=== PATIENT | male | born 1960 | race Caucasian/White ===

== ENCOUNTER 2017-08-18 09:23 | Emergency (ER) | payer MEDICAID ==
[~2017-08-18] VITALS: Ht 182.9 cm; Wt 102.5 kg
[2017-08-18 10:33] VITALS: BP 142/72
[2017-08-18] MEDS ORDERED: TETANUS-DIPTH-ACEL PERTUSSIS 0.5ML SYRG IM ONE (10:45)
== END 2017-08-18 11:00 | disposition home or self-care (01) ==
LOC: ER 09:23
DX: S61.213A Laceration without foreign body of left middle finger without damage to nail, initial encounter (principal); I10 Essential (primary) hypertension; W20.8XXA Other cause of strike by thrown, projected or falling object, initial encounter; Y93.89 Activity, other specified; Y92.89 Other specified places as the place of occurrence of the external cause; Y99.8 Other external cause status
CPT/HCPCS: 12002; 90471; 90715

== ENCOUNTER 2018-09-18 08:47 | Emergency (ER) | payer MEDICAID ==
[~2018-09-18] VITALS: Ht 182.9 cm; Wt 108.9 kg
[2018-09-18 08:58] VITALS: BP 170/98
== END 2018-09-18 09:43 | disposition home or self-care (01) ==
LOC: ER 08:47
DX: S20.412A Abrasion of left back wall of thorax, initial encounter (principal); S00.01XA Abrasion of scalp, initial encounter; I10 Essential (primary) hypertension; W01.0XXA Fall on same level from slipping, tripping and stumbling without subsequent striking against object, initial encounter; Y93.89 Activity, other specified; Y99.8 Other external cause status; Y92.89 Other specified places as the place of occurrence of the external cause

== ENCOUNTER → 2019-02-03 | Outpatient (CLI) | payer MEDICAID ==
[~2019-02-03] VITALS: Ht 182.9 cm; Wt 106.6 kg
[2019-02-03 12:28] LABS: Urine Blood Negative /uL (Negative); Urine Specific Gravity 1.013 (1.001-1.035)
[2019-02-03 12:31] LABS: Basophils # (auto) 0.1 uL; Basophils % (auto) 1.5 % (0.0-2.0); Eosinophils # (auto) 0.3 uL; Eosinophils % (auto) 3.7 % (0.0-7.0); Hematocrit 46.2 % (41.0-53.0); Hemoglobin 15.8 g/dL (13.5-17.5); Lymphocytes # (auto) 2.4 uL; Lymphocytes % (auto) 36.1 % (10.0-50.0); Mean Corpuscular Hemoglobin 32.6 pg (28.0-32.0); Mean Corpuscular Hgb Conc. 34.2 g/dL (32.0-36.0); Mean Corpuscular Volume 95.3 fL (80.0-100.0); Monocytes # (auto) 0.5 uL; Neutrophils # (auto) 3.4 uL; Neutrophils % (auto) 50.7 % (37.0-80.0); Nucleated Red Blood Cells % 0.1 %; Platelet Count (auto) 124 10^3/uL (140-450); Red Blood Cells 4.85 10^6/uL (4.5-5.90); White Blood Cell 6.7 10^3/uL (4.4-10.8)
[2019-02-03 12:41] LABS: Albumin 3.7 g/dL (3.4-5.0); Calcium 9.1 mg/dL (8.5-10.1); Potassium 3.9 mmol/L (3.5-5.1)
[2019-02-03 12:48] LABS: Bilirubin, Total 1.1 mg/dL (0.2-1.0); Prostate Specific Antigen 0.25 ng/mL (0.0-4.0)
[2019-02-03 20:13] LABS: Free T4 (Free Thyroxine) 0.75 ng/dL (0.89-1.76)
== END | disposition home or self-care (01) ==
LOC: Rad HDHVI 08:06
PROVIDERS: ATTEND Internal Medicine Cardiovascular Disease
DX: I34.0 Nonrheumatic mitral (valve) insufficiency (principal); E03.9 Hypothyroidism, unspecified; E29.1 Testicular hypofunction; D51.9 Vitamin B12 deficiency anemia, unspecified; C61 Malignant neoplasm of prostate; N39.0 Urinary tract infection, site not specified; R07.89 Other chest pain; K90.9 Intestinal malabsorption, unspecified; I10 Essential (primary) hypertension; Z79.899 Other long term (current) drug therapy
CPT/HCPCS: 36415; 78452; 80053; 80061; 81003; 82306; 82607; 83036; 84153; 84403; 84439; 84443; 85025; 93017; 93306; 96374; A9500

== ENCOUNTER 2021-10-29 21:26 | Inpatient (IN) | payer MEDICAID ==
[~2021-10-29] VITALS: Ht 182.9 cm; Wt 99.4 kg
[2021-10-29 22:58] LABS: Basophils # (auto) 0.1 10 ^3/uL (0-0.2); Basophils % (auto) 0.9 % (0.0-2.0); Eosinophils # (auto) 0.1 10 ^3/uL (0-0.8); Eosinophils % (auto) 1.1 % (0.0-7.0); Hematocrit 47.6 % (41.0-53.0); Hemoglobin 16.4 g/dL (13.5-17.5); Lymphocytes # (auto) 3.6 10 ^3/uL (0.4-5.4); Lymphocytes % (auto) 29.3 % (10.0-50.0); Mean Corpuscular Hemoglobin 30.9 pg (28.0-32.0); Mean Corpuscular Hgb Conc. 34.4 g/dL (32.0-36.0); Mean Corpuscular Volume 89.9 fL (80.0-100.0); Monocytes # (auto) 1.3 10 ^3/uL (0-1.3); Monocytes % (auto) 10.7 % (0.0-12.0); Nucleated Red Blood Cells % 0.1 %; Red Cell Distribution Width 12.8 % (11.8-14.3); White Blood Cell 12.1 10^3/uL (4.4-10.8)
[2021-10-29 23:18] LABS: Calcium 9.2 mg/dL (8.5-10.1); Potassium 4.1 mmol/L (3.5-5.1)
[2021-10-29 23:26] LABS: Bilirubin, Total 2.6 mg/dL (0.2-1.0); Total Protein 8.4 g/dL (6.4-8.2)
[2021-10-30] MEDS ORDERED: OXYCODONE W/ ACETAMINOPHEN 5/325MG TABLET PO ONE (00:15)
[2021-10-30 02:05] LABS: Urine Bacteria NONE SEEN /hpf (None Seen); Urine Blood Negative /uL (Negative); Urine Specific Gravity 1.014 (1.001-1.035); Urine WBC <1 /hpf (0 - 3)
[2021-10-30] MEDS ORDERED: ONDANSETRON HCL 4 MG/2 ML VIAL IV ONE (05:00)
[2021-10-30] MEDS ORDERED: HYDROmorphone HCL 2 MG/ML VL/or syr IV ONE (05:00)
[2021-10-30] MEDS ORDERED: HYDROcodone-ACET 5/325MG TAB PO PRN (10:15)
[2021-10-30] MEDS: ASPirin-EC 81 mg tab PO SCH (10:15)
[2021-10-30] MEDS ORDERED: ONDANSETRON HCL 4 MG/2 ML VIAL IV PRN (10:15)
[2021-10-30] MEDS: HEPARIN SODIUM (PORCINE) 5000 UNITS/ML 1ML VIAL SC SCH ×2 (11:28→18:15)
[2021-10-30 12:16] LABS: Cholesterol 192 mg/dL (< 200); HDL Cholesterol 26 mg/dL (40-59); LDL Cholesterol 167 mg/dL (< 100); Triglycerides 131 mg/dL (< 150)
[2021-10-30] MEDS: SODIUM CHLOR 0.9% PF (SALINE LOCK) 10ML VIAL/SYR IV SCH ×2 (14:04→21:41)
[2021-10-30] MEDS ORDERED: LISI2.5T47 PO (18:24)
[2021-10-30] MEDS ORDERED: PANTOPRAZOLE 40 MG TAB PO ONE (18:30)
[2021-10-30] MEDS: hydrALAZINE HCL 20 MG/ML VL IV PRN (18:41)
[2021-10-30 20:00] VITALS: BP 127/79
[2021-10-30] MEDS: ATORVASTATIN 20 MG TAB PO SCH (21:41)
[2021-10-30 22:00] VITALS: BP 127/79
[2021-10-30] MEDS ORDERED: ALPR0.25 PO (23:27)
[2021-10-30] MEDS ORDERED: CAR25T PO (23:27)
[2021-10-30] MEDS ORDERED: HYDR-4902 PO (23:28)
[2021-10-31] MEDS: HEPARIN SODIUM (PORCINE) 5000 UNITS/ML 1ML VIAL SC SCH ×3 (01:57→17:44)
[2021-10-31 05:00] VITALS: BP 121/81
[2021-10-31] MEDS: ACETAMINOPHEN 325 MG TAB PO PRN ×3 (05:08→21:51)
[2021-10-31] MEDS: SODIUM CHLOR 0.9% PF (SALINE LOCK) 10ML VIAL/SYR IV SCH ×3 (05:08→21:47)
[2021-10-31 09:20] VITALS: BP 135/83
[2021-10-31] MEDS: PANTOPRAZOLE 40 MG TAB PO SCH (09:58)
[2021-10-31] MEDS: predniSONE 20 MG TAB PO SCH (09:58)
[2021-10-31] MEDS: ASPirin-EC 81 mg tab PO SCH (09:58)
[2021-10-31] MEDS ORDERED: METH4TAB7 PO (10:46)
[2021-10-31] MEDS ORDERED: POM PO (10:46)
[2021-10-31 13:00] VITALS: BP 139/84
[2021-10-31 16:25] VITALS: BP 132/86
[2021-10-31] MEDS ORDERED: ARTIFICIAL TEARS 15ml EACHEYE PRN (21:45)
[2021-10-31 21:49] VITALS: BP 151/92
[2021-10-31] MEDS: ATORVASTATIN 20 MG TAB PO SCH (21:50)
[2021-10-31] MEDS: CARBIDOPA W LEVODOPA 25/100mg TABLET PO SCH (21:50)
[2021-10-31] MEDS: hydrALAZINE HCL 20 MG/ML VL IV PRN (22:02)
[2021-11-01] MEDS: HEPARIN SODIUM (PORCINE) 5000 UNITS/ML 1ML VIAL SC SCH ×3 (04:03→17:59)
[2021-11-01] MEDS: HYDROmorphone HCL 2 MG/ML VL/or syr IV PRN (04:12)
[2021-11-01 05:00] VITALS: BP 149/94
[2021-11-01] MEDS: SODIUM CHLOR 0.9% PF (SALINE LOCK) 10ML VIAL/SYR IV SCH ×3 (05:17→22:06)
[2021-11-01 06:52] LABS: Basophils # (auto) 0.1 10 ^3/uL (0-0.2); Basophils % (auto) 0.5 % (0.0-2.0); Eosinophils # (auto) 0.1 10 ^3/uL (0-0.8); Hematocrit 45.3 % (41.0-53.0); Hemoglobin 15.5 g/dL (13.5-17.5); Lymphocytes # (auto) 5.6 10 ^3/uL (0.4-5.4); Lymphocytes % (auto) 38.8 % (10.0-50.0); Mean Corpuscular Hemoglobin 30.7 pg (28.0-32.0); Mean Corpuscular Hgb Conc. 34.2 g/dL (32.0-36.0); Mean Corpuscular Volume 89.5 fL (80.0-100.0); Monocytes # (auto) 1.4 10 ^3/uL (0-1.3); Monocytes % (auto) 9.9 % (0.0-12.0); Neutrophils # (auto) 7.2 10 ^3/uL (1.6-8.6); Neutrophils % (auto) 49.8 % (37.0-80.0); Nucleated Red Blood Cells % 0.7 %; Red Blood Cells 5.06 10^6/uL (4.5-5.90); Red Cell Distribution Width 13.2 % (11.8-14.3); White Blood Cell 14.5 10^3/uL (4.4-10.8)
[2021-11-01 07:08] LABS: Calcium 8.7 mg/dL (8.5-10.1); Potassium 3.8 mmol/L (3.5-5.1)
[2021-11-01 07:11] LABS: BUN/Creatinine Ratio 24.7
[2021-11-01 08:00] VITALS: BP 150/94
[2021-11-01 09:00] VITALS: BP 150/94
[2021-11-01] MEDS: predniSONE 20 MG TAB PO SCH (10:02)
[2021-11-01] MEDS: ASPirin-EC 81 mg tab PO SCH (10:03)
[2021-11-01] MEDS: PANTOPRAZOLE 40 MG TAB PO SCH (10:03)
[2021-11-01] MEDS ORDERED: IBUPROFEN 400 MG TAB PO PRN (11:15)
[2021-11-01] MEDS ORDERED: IBUPROFEN 400 MG TAB PO ONE (11:15)
[2021-11-01 13:00] VITALS: BP 157/96
[2021-11-01 17:00] VITALS: BP 163/88
[2021-11-01 22:00] VITALS: BP 114/78
[2021-11-01] MEDS: DOCUSATE SOD 100 MG CAP PO SCH (22:05)
[2021-11-01] MEDS: CARBIDOPA W LEVODOPA 25/100mg TABLET PO SCH (22:05)
[2021-11-01] MEDS: ATORVASTATIN 20 MG TAB PO SCH (22:06)
[2021-11-02] MEDS: HYDROmorphone HCL 2 MG/ML VL/or syr IV PRN ×2 (00:30→09:11)
[2021-11-02] MEDS: HEPARIN SODIUM (PORCINE) 5000 UNITS/ML 1ML VIAL SC SCH ×3 (02:15→10:19)
[2021-11-02 05:07] VITALS: BP 119/71
[2021-11-02] MEDS: SODIUM CHLOR 0.9% PF (SALINE LOCK) 10ML VIAL/SYR IV SCH ×2 (06:07→09:07)
[2021-11-02] MEDS: predniSONE 20 MG TAB PO SCH (08:58)
[2021-11-02] MEDS: ASPirin-EC 81 mg tab PO SCH (08:59)
[2021-11-02] MEDS: hydrALAZINE HCL 20 MG/ML VL IV PRN (08:59)
[2021-11-02] MEDS: PANTOPRAZOLE 40 MG TAB PO SCH (08:59)
[2021-11-02] MEDS: DOCUSATE SOD 100 MG CAP PO SCH (08:59)
[2021-11-02 09:00] VITALS: BP 153/94
[2021-11-02] MEDS ORDERED: PANT40T PO (10:21)
[2021-11-02] MEDS ORDERED: PERCOT PO (10:21)
[2021-11-02] MEDS ORDERED: SENN-58 PO (10:22)
[2021-11-02] MEDS ORDERED: PRED20TA2 PO (10:22)
[2021-11-02 11:07] LABS: Basophils # (auto) 0.1 10 ^3/uL (0-0.2); Eosinophils # (auto) 0.1 10 ^3/uL (0-0.8); Hematocrit 44.3 % (41.0-53.0); Hemoglobin 14.8 g/dL (13.5-17.5); Lymphocytes # (auto) 4.5 10 ^3/uL (0.4-5.4); Lymphocytes % (auto) 36.7 % (10.0-50.0); Mean Corpuscular Hemoglobin 30.8 pg (28.0-32.0); Mean Corpuscular Hgb Conc. 33.4 g/dL (32.0-36.0); Monocytes % (auto) 7.8 % (0.0-12.0); Neutrophils # (auto) 6.6 10 ^3/uL (1.6-8.6); Neutrophils % (auto) 53.5 % (37.0-80.0); Nucleated Red Blood Cells % 0.1 %; Red Blood Cells 4.82 10^6/uL (4.5-5.90); White Blood Cell 12.3 10^3/uL (4.4-10.8)
[2021-11-02 11:27] LABS: BUN/Creatinine Ratio 19.5; Calcium 8.6 mg/dL (8.5-10.1); Potassium 3.9 mmol/L (3.5-5.1)
[2021-11-02 11:30] VITALS: BP 153/94
[2021-11-02 13:00] VITALS: BP 161/92
[2021-11-02 13:48] VITALS: BP 163/87
== END 2021-11-02 16:06 | disposition home or self-care (01) | DRG 48 ==
LOC: ER 21:26 → TELE 10-30 10:10 → TELE-EAST 10-30 18:10
PROVIDERS: ADMIT Internal Medicine; ATTEND Internal Medicine Pulmonary Disease
DX: G51.0 Bell's palsy (principal); E66.9 Obesity, unspecified; F41.9 Anxiety disorder, unspecified; K21.9 Gastro-esophageal reflux disease without esophagitis; Z20.822 Contact with and (suspected) exposure to COVID-19; Z68.30 Body mass index [BMI] 30.0-30.9, adult
CPT/HCPCS: 36415; 70450; 70551; 71045; 80048; 80053; 80061; 81001; 84443; 84484; 85025; 87040; 92610; 93306; 93886; 96374; 96375; 97116; 97163; 97530; G0378; J2405

== ENCOUNTER → 2022-04-08 | Outpatient (CLI) | payer MEDICAID ==
[~2022-04-08] MED LIST: ALPR0.25 PO; CAR25T PO; HYDR-4902 PO; LISI2.5T47 PO; METH4TAB7 PO; PANT40T PO; PERCOT PO; PRED20TA2 PO; SENN-58 PO
== END | disposition home or self-care (01) ==
LOC: Rad HDHVI 08:07
PROVIDERS: ATTEND Internal Medicine Cardiovascular Disease
DX: I08.3 Combined rheumatic disorders of mitral, aortic and tricuspid valves (principal); R00.2 Palpitations; E78.5 Hyperlipidemia, unspecified
CPT/HCPCS: 93306

== ENCOUNTER → 2022-05-08 | Outpatient (CLI) | payer MEDICAID ==
[~2022-05-08] VITALS: Ht 182.9 cm; Wt 99.8 kg
[~2022-05-08] MED LIST changes: +ADENOSINE 84 MG in GIVE UN-DILUTED 0 ML IV ONE; +ADENOSINE 90 MG/30 ML INJ IV ONE
== END | disposition home or self-care (01) ==
LOC: Rad HDHVI 08:09
PROVIDERS: ATTEND Internal Medicine Cardiovascular Disease
DX: I35.0 Nonrheumatic aortic (valve) stenosis (principal); R07.89 Other chest pain; I10 Essential (primary) hypertension; G51.0 Bell's palsy; B02.21 Postherpetic geniculate ganglionitis; Z82.49 Family history of ischemic heart disease and other diseases of the circulatory system
CPT/HCPCS: 78452; 93005; 96374; 96375; A9500; J0153

== ENCOUNTER → 2022-07-07 | Outpatient (CLI) | payer MEDICAID ==
[~2022-07-07] MED LIST changes: -ADENOSINE 84 MG in GIVE UN-DILUTED 0 ML IV ONE; -ADENOSINE 90 MG/30 ML INJ IV ONE; +LISI-285 PO
[2022-07-07 09:00] VITALS: BP 161/90
[2022-07-07 09:27] VITALS: BP 149/88
== END | disposition home or self-care (01) ==
LOC: CHF HDHVI 09:06
PROVIDERS: ATTEND Internal Medicine Cardiovascular Disease
DX: Z01.818 Encounter for other preprocedural examination (principal); R94.31 Abnormal electrocardiogram [ECG] [EKG]; I44.4 Left anterior fascicular block; I11.0 Hypertensive heart disease with heart failure; I50.23 Acute on chronic systolic (congestive) heart failure; I34.0 Nonrheumatic mitral (valve) insufficiency; I34.1 Nonrheumatic mitral (valve) prolapse; R42 Dizziness and giddiness
CPT/HCPCS: 93005; G0463

== ENCOUNTER 2022-07-10 06:54 | Day surgery (SDC) | payer MEDICAID ==
[2022-07-07 10:10] LABS: Basophils # (auto) 0.1 10 ^3/uL (0-0.2); Basophils % (auto) 1.5 % (0.0-2.0); Eosinophils # (auto) 0.3 10 ^3/uL (0-0.8); Eosinophils % (auto) 3.6 % (0.0-7.0); Hematocrit 46.2 % (41.0-53.0); Hemoglobin 16.1 g/dL (13.5-17.5); Lymphocytes # (auto) 3.1 10 ^3/uL (0.4-5.4); Lymphocytes % (auto) 41.6 % (10.0-50.0); Mean Corpuscular Hemoglobin 31.8 pg (28.0-32.0); Mean Corpuscular Hgb Conc. 34.8 g/dL (32.0-36.0); Mean Corpuscular Volume 91.4 fL (80.0-100.0); Monocytes # (auto) 0.7 10 ^3/uL (0-1.3); Monocytes % (auto) 9.6 % (0.0-12.0); Neutrophils # (auto) 3.2 10 ^3/uL (1.6-8.6); Neutrophils % (auto) 43.7 % (37.0-80.0); Nucleated Red Blood Cells % 0.4 %; Red Blood Cells 5.06 10^6/uL (4.5-5.90); Red Cell Distribution Width 13.1 % (11.8-14.3); White Blood Cell 7.4 10^3/uL (4.4-10.8)
[2022-07-07 10:47] LABS: Calcium 9.4 mg/dL (8.5-10.1); Potassium 4.8 mmol/L (3.5-5.1)
[2022-07-07 10:49] LABS: BUN/Creatinine Ratio 13.6 (10.0-20.0)
[2022-07-07 11:17] LABS: INR 1.08 (0.9-1.15); Partial Thromboplastin Time 27.2 sec (24.6-33.4)
[~2022-07-10] VITALS: Ht 182.9 cm; Wt 100.7 kg
[~2022-07-10 06:54] MED LIST changes: -METH4TAB7 PO; -PERCOT PO; -PRED20TA2 PO; -SENN-58 PO
[2022-07-10] MEDS ORDERED: LIDOCAINE 2%HCL (LOCAL ANESTH.) INJ 10ml MDV ONE (08:47)
[2022-07-10] MEDS ORDERED: ANGIOMAX 250 MG VIAL IV ONE (08:53)
[2022-07-10] MEDS ORDERED: fentaNYL CITRATE 100 MCG/2 ML VL ONE (08:53)
[2022-07-10] MEDS ORDERED: MIDAZOLAM HCL 2MG/2ML 2ml VIAL (1mg/ml) ONE (08:54)
[2022-07-10] MEDS ORDERED: SODIUM CHL 0.9% 0 ML ONE (08:54)
== END 2022-07-10 15:55 | disposition home or self-care (01) ==
LOC: CATH 06:54
PROVIDERS: ATTEND Internal Medicine Cardiovascular Disease
DX: R94.39 Abnormal result of other cardiovascular function study (principal); I34.0 Nonrheumatic mitral (valve) insufficiency; I11.9 Hypertensive heart disease without heart failure; E66.01 Morbid (severe) obesity due to excess calories; I27.20 Pulmonary hypertension, unspecified; G47.30 Sleep apnea, unspecified; R06.02 Shortness of breath; I25.10 Atherosclerotic heart disease of native coronary artery without angina pectoris; Z79.899 Other long term (current) drug therapy; Z20.822 Contact with and (suspected) exposure to COVID-19
CPT/HCPCS: 36415; 80048; 85025; 85610; 85730; 93460; C1757; C1769; C1894; J1644; J2001; J2250; J3010; U0003

== ENCOUNTER 2022-07-30 09:53 | Emergency (ER) | payer MEDICAID ==
[~2022-07-30] VITALS: Ht 182.9 cm; Wt 101.0 kg
[2022-07-30 10:28] LABS: Basophils # (auto) 0.1 10 ^3/uL (0-0.2); Basophils % (auto) 1.2 % (0.0-2.0); Eosinophils # (auto) 0.3 10 ^3/uL (0-0.8); Eosinophils % (auto) 3.9 % (0.0-7.0); Hemoglobin 16.4 g/dL (13.5-17.5); Lymphocytes # (auto) 3.5 10 ^3/uL (0.4-5.4); Lymphocytes % (auto) 45.5 % (10.0-50.0); Mean Corpuscular Hemoglobin 31.6 pg (28.0-32.0); Mean Corpuscular Hgb Conc. 34.9 g/dL (32.0-36.0); Mean Corpuscular Volume 90.4 fL (80.0-100.0); Monocytes # (auto) 0.7 10 ^3/uL (0-1.3); Monocytes % (auto) 8.9 % (0.0-12.0); Neutrophils # (auto) 3.1 10 ^3/uL (1.6-8.6); Neutrophils % (auto) 40.5 % (37.0-80.0); Nucleated Red Blood Cells % 0.5 %; Red Cell Distribution Width 12.9 % (11.8-14.3); White Blood Cell 7.7 10^3/uL (4.4-10.8)
[2022-07-30 10:36] LABS: INR 1.08 (0.9-1.15); Partial Thromboplastin Time 27.9 sec (24.6-33.4)
[2022-07-30 10:46] LABS: BUN/Creatinine Ratio 15.3 (10.0-20.0); Calcium 9.5 mg/dL (8.5-10.1); Potassium 4.1 mmol/L (3.5-5.1)
[2022-07-30 10:48] LABS: Bilirubin, Total 1.3 mg/dL (0.2-1.0)
[2022-07-30] MEDS ORDERED: PRED20TA2 PO (11:49)
[2022-07-30 12:02] VITALS: BP 151/88
== END 2022-07-30 11:50 | disposition home or self-care (01) ==
LOC: ER 09:53
DX: R21 Rash and other nonspecific skin eruption (principal); R07.89 Other chest pain; T46.1X5A Adverse effect of calcium-channel blockers, initial encounter; I10 Essential (primary) hypertension; K21.9 Gastro-esophageal reflux disease without esophagitis; Z79.899 Other long term (current) drug therapy; Y92.89 Other specified places as the place of occurrence of the external cause
CPT/HCPCS: 36415; 71045; 80053; 84484; 85025; 85610; 85730; 93005

== ENCOUNTER → 2024-01-20 | Outpatient (CLI) | payer MEDICAID ==
[~2024-01-20] MED LIST changes: +PRED20TA2 PO
== END | disposition home or self-care (01) ==
LOC: Rad HDHVI 09:03
PROVIDERS: ATTEND Internal Medicine Cardiovascular Disease
DX: I08.8 Other rheumatic multiple valve diseases (principal); I11.9 Hypertensive heart disease without heart failure
CPT/HCPCS: 93306; 93925

== ENCOUNTER 2024-09-12 09:57 | Outpatient (CLI) | payer MEDICAID | END 2024-09-12 17:00 | disposition home or self-care (01) | LOC: Rad HDHVI 09:57 | PROVIDERS: ATTEND Internal Medicine Cardiovascular Disease | DX: I08.0 Rheumatic disorders of both mitral and aortic valves (principal) | CPT/HCPCS: 93306 ==

== ENCOUNTER → 2024-10-11 | Outpatient (CLI) | payer MEDICAID ==
[2024-10-11 11:52] LABS: Albumin 4.7 g/dL (3.2-4.8); Alkaline Phosphatase 71.0 U/L (46-116); Bilirubin, Direct 0.2 mg/dL (<0.3); Total Protein 7.8 g/dL (5.7-8.2)
[2024-10-11 11:53] LABS: Alanine Aminotransferase 61.0 U/L (7-40); Bilirubin, Total 0.8 mg/dL (0.2-1.0)
== END | disposition home or self-care (01) ==
LOC: LAB 10:46
PROVIDERS: ATTEND Podiatrist
DX: B35.1 Tinea unguium (principal)
CPT/HCPCS: 36415; 80076